=== PATIENT | male | born 1980 | race Two or more races ===

== ENCOUNTER 2021-01-06 16:10 | Inpatient (IN) | payer SELFPAY ==
[2021-01-06] VITALS (9 sets, daily range): BP systolic 81–122; BP diastolic 54–81
[~2021-01-06] VITALS: Ht 180.3 cm; Wt 72.1 kg
--- NOTE | 2021-01-06 16:20 | NUR ---
ESSENCE PENNINGTON"Was found in back of [address] with crack pipe beside him unresponsive. suspected OD on unknown substance. narcan given prior by paramedics priod to bringing patient. admit to ER bed 4
[2021-01-06] MEDS ORDERED: NALOXONE PREFILLED SYRINGE 2 MG/2 ML SYRINGE ONE (16:23)
[2021-01-06] MEDS ORDERED: NALOXONE PREFILLED SYRINGE 2 MG/2 ML SYRINGE IV ONE ×3 (16:30)
--- NOTE | 2021-01-06 16:30 | NUR ---
1630 administered 2mg nacarcan at this time per order.
--- NOTE | 2021-01-06 16:35 | NUR ---
NO POSITIVE RESPONSE POST NARCAN ADMINISTRATION, PT REMAINS OBTUNDED. ADMINISTERED 2ND DOSE PER ORDER
--- NOTE | 2021-01-06 16:40 | NUR ---
NO POSITIVE RESPONSE POST NARCAN ADMINISTRATION, PT REMAINS OBTUNDED. ADMINISTERED 3RD DOSE PER ORDER
--- NOTE | 2021-01-06 16:50 | NUR ---
PT REMAINED OBTUNDED, DR VARGAS MADE AWARE. PT PREP FOR RSI.
--- NOTE | 2021-01-06 16:51 | NUR ---
ETOMIDATE AND ROCURONIUM ADMINISTERED AT THIS TIME PER ORDER
--- NOTE | 2021-01-06 16:53 | NUR ---
INTUBATED WITH 7.5 EET TUBE SIZE, 24 CM AT LIP. WILL CONT TO MONITOR
[2021-01-06] MEDS ORDERED: NOREPINEPHRINE 8 MG in IV NS 0.9% 250ML IV PRN (17:00)
[2021-01-06] MEDS ORDERED: FENTANYL CITRATE/PF 1,250 MCG in IV NS 0.9% 225 ML IV PRN ×2 (17:00→22:30)
[2021-01-06] MEDS ORDERED: MIDAZOLAM HCL 50 MG in IV NS 0.9% 40 ML IV PRN ×2 (17:00→22:30)
[2021-01-06] MEDS ORDERED: KEY,NONCONTROL,TO KEEP IN PYXI 1 EA MC ONE (17:18)
[2021-01-06 17:21] LABS: BASOPHILS % (AUTO) 0.1 % (0.0-2.0); HEMATOCRIT 41 % (39-51); HEMOGLOBIN 12.9 g/dL (13.5-17.5); LYMPHOCYTES # (AUTO) 0.6 K/uL (0.8-4.8); MEAN CORPUSCULAR HGB CONC 32 g/dl (31.0-36.0); MEAN CORPUSCULAR VOLUME 99 fL (80-96); MONOCYTES # (AUTO) 1.6 K/uL (0.1-1.30); MONOCYTES % (AUTO) 10.3 % (2.0-12.0); NEUTROPHILS # (AUTO) 13.4 K/uL (1.8-8.9); NEUTROPHILS % (AUTO) 85.6 % (43.0-81.0); PLATELET COUNT (AUTO) 249 K/uL (150-450); WHITE BLOOD COUNT (AUTO) 15.6 K/uL (4.3-11.0)
[2021-01-06] MEDS ORDERED: NS 0.9% IV ONE (17:30)
[2021-01-06 17:33] LABS: ALANINE AMINOTRANSFERASE 121 U/L (12-78); ALBUMIN 3.9 g/dL (3.4-5.0); ALKALINE PHOSPHATASE 52 U/L (46-116); ASPARTATE AMINOTRANSFERASE 240 U/L (15-37); BILIRUBIN,DIRECT 0.1 mg/dL (0.0-0.2); BILIRUBIN,TOTAL 0.2 mg/dL (0.2-1.0); CALCIUM, SERUM 7.3 mg/dL (8.5-10.1); CARBON DIOXIDE 21 mmol/L (21-32); CHLORIDE 106 mmol/L (98-107); CREATININE 2.3 mg/dL (0.6-1.3); GLUCOSE 111 mg/dL (74-106); SODIUM SERUM 140 mmol/L (136-145); TOTAL PROTEIN, SERUM 6.9 g/dL (6.4-8.2); UREA NITROGEN, BLOOD 40 mg/dL (7-18)
[2021-01-06 17:40] LABS: POTASSIUM 6.4 mmol/L (3.5-5.1)
[2021-01-06 17:59] LABS: MAGNESIUM 2.4 mg/dL (1.8-2.4)
[2021-01-06 18:00] LABS: ALCOHOL, BLOOD < 2 mg/dL (0-0)
[2021-01-06] MEDS ORDERED: SODIUM POLYSTYRENE SULFONATE 15 G/60 ML BOTTLE NG ONE (18:00)
[2021-01-06] MEDS ORDERED: INSULIN REGULAR, HUMAN 100 UNIT/ML 10 ML VIAL IV ONE (18:00)
[2021-01-06] MEDS ORDERED: PIPERACILLIN /TAZOBACTAM 2.25 G in IV D5W 50 ML IV ONE (18:00)
[2021-01-06] MEDS ORDERED: DEXTROSE 50%-WATER 50 ML DISP.SYRIN IVP ONE (18:00)
--- NOTE | 2021-01-06 18:00 | NUR ---
DR VARGAS AT BEDSIDE FOR CENTRAL LINE INSERTION
[2021-01-06 18:03] LABS: ACETAMINOPHEN < 10 ug/ml (10-30)
[2021-01-06 19:02] LABS: CREATINE KINASE, TOTAL 1300 U/L (39-308)
[2021-01-06] MEDS ORDERED: ALBUTEROL FS 2.5 MG/3 ML VIAL.NEB ONE (19:26)
[2021-01-06] MEDS ORDERED: ASPIRIN 300 MG/SUPP.RECT RC ONE ×2 (19:30→20:23)
[2021-01-06] MEDS ORDERED: ALBUTEROL FS 2.5 MG/3 ML VIAL.NEB CONTNEB ONE (19:30)
--- NOTE | 2021-01-06 19:31 | NUR ---
room [id number]
--- NOTE | 2021-01-06 19:32 | NUR ---
increased versed to 1.5; and fentanyl 2
--- NOTE | 2021-01-06 19:47 | NUR ---
called rt for abg results. running right now
--- NOTE | 2021-01-06 19:52 | NUR ---
called xray for ng tube placement xray
--- NOTE | 2021-01-06 19:54 | NUR ---
NG-TUBE INSERTED AT THIS TIME IN LEFT NARE AT 60. X-RAY CALLED TO VERIFY PLACEMENT. WILL ENDORSE TO BAKERY SUPERVISOR
[2021-01-06] MEDS ORDERED: SODIUM POLYSTYRENE SULFONATE 15 G/60 ML BOTTLE ONE (19:55)
[2021-01-06] MEDS ORDERED: DEXTROSE 50%-WATER 50 ML DISP.SYRIN ONE (19:55)
[2021-01-06] MEDS ORDERED: INSULIN REGULAR, HUMAN 100 UNIT/ML 10 ML VIAL ONE (19:55)
--- NOTE | 2021-01-06 19:55 | NUR ---
GREGORY CATHETER 16 FR. INSERTED AT THIS TIME. DRAING TO GRAVITY CLEAR YELLOW URINE. ENDORSE TO LANDFILL ATTENDANT NURSE
[2021-01-06] MEDS ORDERED: VANCOMYCIN 1 GM in IV D5W 250 ML IV ONE (20:00)
[2021-01-06] MEDS ORDERED: VANCOMYCIN 1 GM VIAL ONE (20:23)
--- NOTE | 2021-01-06 20:30 | NUR ---
RT ABG RESULTS RELAYED TO DR. VARGAS, NO CHANGES AT THIS TIME. WILL CONTINUE TO MONITOR.
--- NOTE | 2021-01-06 20:51 | NUR ---
REPORT GIVEN TO ROGELIO PARRISH
[2021-01-06] MEDS ORDERED: ENOXAPARIN SODIUM 40 MG/0.4 ML DISP.SYRIN SQ SCH (21:00)
[2021-01-06 21:26] LABS: ABG BASE EXCESS -10.2 mmol/L; ABG OXYGEN SATURATION 97.2 % (92.0-98.5); ABG PCO2 41.6 mmHg (35.0-45.0); ABG PH 7.227 (7.350-7.450); ABG PO2 111.8 mmHg (75.0-100.0); AaDO2 559.6 mmHg; COHb 0.4 % (0.5-1.5); MetHb 0.2 % (0.0-1.5); O2Hb 96.6 % (94.0-97.0); SITE, ABG Left Radial
--- NOTE | 2021-01-06 21:30 | NUR ---
TRANSFERRED PER ACLS PROTOCOL
[2021-01-06] MEDS: NOREPINEPHRINE 32 MG in IV NS 0.9% 218 ML IV PRN (21:35)
--- NOTE | 2021-01-06 21:35 | NUR ---
ADMITTED A 40 Y/O MALE NON VERBAL FROM ER INTUBATED ON VENT ETT 7.5 SECURED AT 25CM AT THE LIP. ADMISSION ORDER NOTED AND CARRIED OUT HEAD TO TOE ASSESSMENT DONE SKIN INTACT . PTS ON RIGHT FEMORAL TLC , LEFT AC g18 ,AND RIGHT AC g20 ALL INTACT AND PATENT. PTS ON F/C DRAINING WITH YELLOWISH URINE OUTPUT . NGT CLAMPED ON LEFT NOSTRILS ELISA AT 60CM INTACT AND PATENT PTS ON NPO STATUS ,ALL.NEEDS ATTENDED TOO CALL LIGHT WITHIN REACH PTS ON VERSED 1.5 ML/HR FENTANYL 25MCG /5ML/HR LEVOPHED 0.6 /21.6 ML /HR ALL WELL TOLERATED BY PTS , ALL DUE MEDS GIVEN AD ORDERED , BELONGING FOR PTS IS ONLY PANTS AND UNDERWARE KEPT ON SIDE TABLE. WILL CONTINUE TO MONITOR.
[2021-01-06] MEDS: PANTOPRAZOLE 40 MG VIAL IV SCH (21:59)
[2021-01-06] MEDS ORDERED: AMIODARONE 450 MG in IV D5W 241 ML IV PRN (22:30)
[2021-01-06] MEDS ORDERED: AMIODARONE 150 MG in IV D5W 100 ML IV ONE (22:30)
[2021-01-06] MEDS: IV NS 0.9% 1,000 ML IV PRN (23:00)
[2021-01-06] MEDS ORDERED: SODIUM BICARBONATE SYR 50 MEQ/50 ML DISP.SYRIN IV ONE (23:30)
[2021-01-06] MEDS ORDERED: IV NS 0.9% 500 ML BAG IV ONE (23:30)
--- NOTE | 2021-01-06 23:47 | NUR ---
RECEIVED PT INTUBATED ON VENT FROM ER @2135. ETT 7.5 SECURED AT 25CM AT THE LIP. VENT ALARMS SET AND AUDIBLE. WILL CONTINUE TO MONITOR. Addendum: 01/06/21 at 2349 by ELIZABETH ROTHMAN RT Amended: Links added.
[2021-01-07] VITALS (87 sets, daily range): BP systolic 84–128; BP diastolic 34–88
[2021-01-07] MEDS ORDERED: PIPERACILLIN /TAZOBACTAM 3.375 G VIAL IV ONE ×2 (00:55→05:11)
[2021-01-07] MEDS: PIPERACILLIN /TAZOBACTAM 3.375 G in IV D5W 50 ML IV SCH ×5 (00:56→23:13)
[2021-01-07 03:15] LABS: BILIRUBIN,URINE NEGATIVE (NEGATIVE); COLOR,URINE YELLOW (YELLOW); LEUKOCYTE ESTERASE ,URINE NEGATIVE (NEGATIVE); NITRITE, URINE NEGATIVE (NEGATIVE); PROTEIN,URINE 30 mg/dl (NEGATIVE); UGLUCOSE 100 MG/DL mg/dL (NEGATIVE); UROBILINOGEN,URINE 0.2 EU/dL (0.2)
[2021-01-07 03:35] LABS: BACTERIA,URINE None seen /HPF (None Seen); SQUAMOUS EPITHELIAL CELL,UR Rare /HPF (None Seen); URINE AMORPHOUS PHOSPHATES Moderate /HPF (None Seen)
[2021-01-07 03:36] LABS: COARSE GRANULAR CASTS,URINE Rare /LPF (None Seen)
--- NOTE | 2021-01-07 05:00 | NUR ---
agricultural technician notes versed drip increase to 2mg multimedia technician finesse made aware
[2021-01-07 05:01] LABS: BASOPHILS % (AUTO) 0.2 % (0.0-2.0); HEMATOCRIT 43 % (39-51); HEMOGLOBIN 14.3 g/dL (13.5-17.5); LYMPHOCYTES # (AUTO) 1.2 K/uL (0.8-4.8); LYMPHOCYTES % (AUTO) 11.6 % (20.0-44.0); MEAN CORPUSCULAR HGB CONC 33 g/dl (31.0-36.0); MEAN CORPUSCULAR VOLUME 97 fL (80-96); MONOCYTES # (AUTO) 0.7 K/uL (0.1-1.30); MONOCYTES % (AUTO) 7.3 % (2.0-12.0); NEUTROPHILS # (AUTO) 8.2 K/uL (1.8-8.9); NEUTROPHILS % (AUTO) 80.9 % (43.0-81.0); PLATELET COUNT (AUTO) 264 K/uL (150-450); RED BLOOD CELL COUNT(AUTO) 4.44 MIL/uL (4.5-6.0); WHITE BLOOD COUNT (AUTO) 10.1 K/uL (4.3-11.0)
[2021-01-07 05:30] LABS: ALBUMIN 3.4 g/dL (3.4-5.0); BILIRUBIN,TOTAL 0.8 mg/dL (0.2-1.0); CALCIUM, SERUM 7.2 mg/dL (8.5-10.1); CREATININE 1.6 mg/dL (0.6-1.3); MAGNESIUM 2.1 mg/dL (1.8-2.4); PHOSPHORUS 3.3 mg/dL (2.5-4.9); POTASSIUM 4.2 mmol/L (3.5-5.1); TOTAL PROTEIN, SERUM 6.1 g/dL (6.4-8.2)
[2021-01-07] MEDS: IV NS 0.9% 1,000 ML IV PRN ×2 (06:30→15:46)
--- NOTE | 2021-01-07 06:37 | NUR ---
horticultural nursery assistant notes fentanyl drip stop pts very sedated finesse avery made aware. Addendum: 01/07/21 at 0639 by FRANCOIS HERR RN fentanyl drip stop at 0400 hrs
[2021-01-07] MEDS: ACETAMINOPHEN 650 MG/SUPP.RECT RC PRN ×2 (06:44→17:39)
--- NOTE | 2021-01-07 06:49 | NUR ---
agriculture inspector notes Pts temperature of 100 tylenol 650 mg suppository given as ordered.cooling measures administered. will indorse to rn day shift for continuity of care.
--- NOTE | 2021-01-07 07:15 | NUR ---
RETAIL SALES SPECIALIST OPENING NOTE RECEIVED REPORT FROM PM NURSE.PATIENT IN BED ,INTUBATED 7.5@LIP LEVEL,ADVANCED NGT PER X RAY RECOMMENDATION.ON VERSED ,LEVO FOR BP MAINTENANCE.IVF.HAS GREGORY CATH DRAINING CLEAR YELLOW URINE.FEMORAL PICC LINE IS INTACT AND PATENT.BILATERAL SOFT RESTRAINTS ON .SKIN WITH IN NORMAL LIMIT.BED IS LOW AND IN LOCKED POSITION.CALL LIGHT IN REACH.BED ALARM ON .SRX3.WILL CONTINUE TO MONITOR.
[2021-01-07] MEDS ORDERED: NOREPINEPHRINE 8 MG in IV NS 0.9% 242 ML IV PRN (08:00)
[2021-01-07] MEDS: PANTOPRAZOLE 40 MG VIAL IV SCH (08:14)
[2021-01-07] MEDS: HEPARIN SODIUM, PORCINE 5000 UNITS/1 ML VIAL SQ SCH ×2 (08:15→20:33)
[2021-01-07 10:46] LABS: ABG BASE EXCESS -2.7 mmol/L; ABG PH 7.326 (7.350-7.450); ABG PO2 107.8 mmHg (75.0-100.0); AaDO2 559.2 mmHg; COHb 0.3 % (0.5-1.5); MetHb 0.3 % (0.0-1.5); O2Hb 97.4 % (94.0-97.0); PEEP,BG 0 cm H2O; SITE, ABG Right Radial; VENT MODE, BG 18; VT, ABG 500 mL
--- NOTE | 2021-01-07 11:03 | NUR ---
changes made below per dr. mojica: et tube push in 3 cm from 25cm t0 28 cm lipline. PEEP FROM 0 TO +5 CM H2O RN NOTIFIED ON ABOVE CHANGES. Addendum: 01/07/21 at 1105 by YSABEL HWANG RT Amended: Links added.
[2021-01-07] MEDS: PROPOFOL 100 ML IV PRN ×2 (11:25→18:54)
[2021-01-07] MEDS ORDERED: MORPHINE SULFATE INJ 2 MG/ML DISP.SYRIN IV ONE (11:30)
[2021-01-07] MEDS ORDERED: MORPHINE SULFATE INJ 2 MG/ML DISP.SYRIN IV PRN (11:30)
[2021-01-07] MEDS: VANCOMYCIN 1 GM in IV D5W 250 ML IV SCH (13:16)
[2021-01-07] MEDS: NOREPINEPHRINE 32 MG in IV NS 0.9% 218 ML IV PRN (13:18)
--- NOTE | 2021-01-07 19:00 | NUR ---
RN NOTE REPORT RECEIVED FROM MINA MERCADO, PATIENT IN BED, SEDATED, IN NO S/SX OF ACUTE DISTRESS AT THIS TIME. SATURATION AT 100% ON ET TUBE CONNECTED TO MECHANICAL VENTILATOR WITH SETTINGS PRESCRIBED, SR ON THE MONITOR, HR IS 76. NOTED NG TUBE AT L NARE, POSITIVE PLACEMENT VERIFIED BY ASPIRATION AND AUSCULTATION, KEPT NPO. NOTED B SOFT WRIST RESTRAINTS, SKIN AND CIRCULATION WAS CHECKED. R FEMORAL TRIPLE LUMEN CATH INTACT, ALL HUBS PATENT AND FLUSHING WELL, NO S/S OF INFECTION NOTED, WITH LEVO INFUSING AT 0.6 MCG/KG/MIN, PROPOFOL AT 30 MCG/KG/MIN, AND NS AT 100 ML/HR. GREGORY CATHETER CONNECTED TO URINE BAG INTACT, DRAINING TO A CLEAR YELLOW OUTPUT. SAFETY MEASURES IMPLEMENTED. PATIENT BED ALARM IS ON. HEAD OF BED ELEVATED. BED IS LOCKED, IN LOWEST POSITION AND SIDE RAILS UP. CALL LIGHT WITHIN REACH OF THE PATIENT. WILL CONTINUE TO MONITOR AND REASSESS FOR ANY CHANGES.
--- NOTE | 2021-01-07 19:35 | NUR ---
NASCAR DRIVER NOTE PATIENT IN BED ,INTUBATED 7.12/02@LIP LEVEL,ADVANCED ET TUBE PER INSTRUCTIONS BY RT.ON PROPOFOL ,LEVO FOR BP MAINTENANCE.IVF.HAS GREGORY CATH DRAINING CLEAR YELLOW URINE.FEMORAL PICC LINE IS INTACT AND PATENT.BILATERAL SOFT RESTRAINTS ON .SKIN WITH IN NORMAL LIMIT.BED IS LOW AND IN LOCKED POSITION.CALL LIGHT IN REACH.BED ALRM ON .SRX3.ENDORSED TO PM NURSE FOR MILIND.RUBY MAHER MADE AWARE ABOUT NEW LABS IN THE MORNING AND MRSA POSITIVE RESULT,ON CONTACT ISOLATION .
--- NOTE | 2021-01-07 19:55 | NUR ---
RCVD PT ORALLY INTUBATED WITH 7.5 ETT SECURED @ 28 CM [facility] THE SETTINGS OF AC 18, VT 500, FIO2 100%. PEEP 5 . SUCTIONED SMALL AMOUNT OF WHITE THIN SECRETIONS. NO RESPIRATORY DISTRESS NOTED AT THIS TIME. VENT PLUGGED INTO RED OUTLET, VENT ALARMS ON AND AUDIBLE. WILL CONTINUE TO MONITOR PT T/O SHIFT.
[2021-01-07] MEDS: MUPIROCIN OINT 2% 22 GM TUBE NS SCH (20:34)
--- NOTE | 2021-01-07 21:50 | NUR ---
RN NOTE TELEPHONE CALL FROM LAB, STATED URINE COLLECTED FOR URINE CULTURE ON 01/06/21 FROM ER WAS NOT PROCESSED AND SPECIMEN NO LONGER VALID. NEW URINE SPECIMEN COLLECTED, LABELED AND PLACED IN [place], PICKED UP BY KENNY.
[2021-01-08] VITALS (97 sets, daily range): BP systolic 85–137; BP diastolic 51–89
[2021-01-08] MEDS: VANCOMYCIN 1 GM in IV D5W 250 ML IV SCH ×3 (00:49→23:59)
[2021-01-08] MEDS: PROPOFOL 100 ML IV PRN ×6 (01:26→23:11)
[2021-01-08] MEDS: NOREPINEPHRINE 32 MG in IV NS 0.9% 218 ML IV PRN (01:26)
[2021-01-08 05:01] LABS: BASOPHILS % (AUTO) 0.3 % (0.0-2.0); EOSINOPHILS % (AUTO) 0.6 % (0.0-6.0); HEMATOCRIT 38 % (39-51); HEMOGLOBIN 12.4 g/dL (13.5-17.5); LYMPHOCYTES # (AUTO) 1.2 K/uL (0.8-4.8); LYMPHOCYTES % (AUTO) 7.8 % (20.0-44.0); MEAN CORPUSCULAR HGB CONC 33 g/dl (31.0-36.0); MEAN CORPUSCULAR VOLUME 97 fL (80-96); MONOCYTES # (AUTO) 0.9 K/uL (0.1-1.30); MONOCYTES % (AUTO) 6.1 % (2.0-12.0); NEUTROPHILS # (AUTO) 13.2 K/uL (1.8-8.9); NEUTROPHILS % (AUTO) 85.2 % (43.0-81.0); PLATELET COUNT (AUTO) 206 K/uL (150-450); RED BLOOD CELL COUNT(AUTO) 3.91 MIL/uL (4.5-6.0); WHITE BLOOD COUNT (AUTO) 15.5 K/uL (4.3-11.0)
[2021-01-08] MEDS: IV NS 0.9% 1,000 ML IV PRN (05:18)
[2021-01-08] MEDS: PIPERACILLIN /TAZOBACTAM 3.375 G in IV D5W 50 ML IV SCH ×4 (05:19→23:00)
[2021-01-08 05:27] LABS: ALBUMIN 2.7 g/dL (3.4-5.0); BILIRUBIN,DIRECT 0.2 mg/dL (0.0-0.2); BILIRUBIN,TOTAL 0.6 mg/dL (0.2-1.0); CALCIUM, SERUM 7.6 mg/dL (8.5-10.1); CREATININE 0.8 mg/dL (0.6-1.3); MAGNESIUM 1.9 mg/dL (1.8-2.4); PHOSPHORUS 1.6 mg/dL (2.5-4.9); POTASSIUM 3.9 mmol/L (3.5-5.1); TOTAL PROTEIN, SERUM 5.7 g/dL (6.4-8.2)
--- NOTE | 2021-01-08 07:18 | NUR ---
RN NOTE PATIENT REMAINS SEDATED, R FEMORAL TLC INTACT WITH PROPOFOL INFUSING AT 35 MCG/KG/MIN, NS AT 100 ML/HR, AND LEVOPHED AT 0.2 MCG/KG/MIN, SATURATION AT 99% ON 70% FIO2 VIA ET TUBE CONNECTED TO MECHANICAL VENTILATOR, GREGORY CATHETER TO URINE BAG INTACT, DRAINED A TOTAL OF 495 CLEAR, YELLOW OUTPUT. ASPIRATION AND APPROPRIATE ISOLATION PRECAUTIONS MAINTAINED, SAFETY MEASURES IMPLEMENTED. PATIENT BED ALARM IS ON. HEAD OF BED ELEVATED. BED IS LOCKED, IN LOWEST POSITION AND SIDE RAILS UP. ENDORSED TO MONTEZ MERCADO FOR CONTINUATION OF CARE.
--- NOTE | 2021-01-08 07:30 | NUR ---
RN OPENING NOTES RECEIVED PATIENT SEDATED AND ORALLY INTUBATED. TOLERATING MECHVENT SETTINGS WITH AC 18 TV 500 FIO2 50% PEEP 5. NG LEFT NARE. SR 81 ON BEDSIDE MONITOR. RIGHT FEMORAL TLC WITH LEVO AT 0.2MCG/KG, PROPOFOL AT 35 MCG/KG, AND N/S AT 100ML/HR. GREGORY DRAINING BY GRAVITY. SAFETY CHECKS IN PLACE. WILL CONTINUE TO MONITOR.
[2021-01-08] MEDS ORDERED: ACETAMINOPHEN 650 MG/20.3 ML UDC NG PRN (08:00)
[2021-01-08] MEDS: PANTOPRAZOLE 40 MG VIAL IV SCH (08:10)
[2021-01-08] MEDS: HEPARIN SODIUM, PORCINE 5000 UNITS/1 ML VIAL SQ SCH ×2 (08:14→21:17)
[2021-01-08] MEDS: MUPIROCIN OINT 2% 22 GM TUBE NS SCH ×2 (08:16→21:17)
[2021-01-08 08:17] LABS: ABG BASE EXCESS 0.1 mmol/L; ABG OXYGEN SATURATION 98.9 % (92.0-98.5); ABG PCO2 44.2 mmHg (35.0-45.0); ABG PH 7.379 (7.350-7.450); ABG PO2 140.8 mmHg (75.0-100.0); COHb 0.1 % (0.5-1.5); MetHb 0.3 % (0.0-1.5); O2Hb 98.5 % (94.0-97.0); SITE, ABG Right Radial
--- NOTE | 2021-01-08 08:45 | NUR ---
RN NOTE [facility] 29.2. DR HIDALGO NOTIFIED.
[2021-01-08] MEDS: POTASSIUM PHOSPHATE MM 7.5 MMOL in IV NS 0.9% 100 ML IV SCH ×2 (10:00→14:01)
--- NOTE | 2021-01-08 10:15 | NUR ---
RN NOTE PATIENT WENT ON AFIB 120-140S. DR HIDALGO NOTIFIED. ORDER FOR CARDIZEM 10MG IV PUSH Q6H PRN WAS OBTAINED.
[2021-01-08] MEDS ORDERED: DILTIAZEM HCL 50 MG IV IV PRN (10:30)
[2021-01-08] MEDS: IV D5W 1,000 ML IV PRN (18:39)
--- NOTE | 2021-01-08 18:40 | NUR ---
RN CLOSING NOTES PATIENT REMAINS SEDATED AND ORALLY INTUBATED. MECHVENT SETTINGS AT AC 18 TV 500 FIO2 40% PEEP 5. NG LEFT NARE CLAMPED. SR 73 ON BEDSIDE MONITOR. RIGHT FEMORAL TLC WITH LEVO AT 0.2MCG/KG, PROPOFOL AT 40 MCG/KG, AND D5WAT 100ML/HR. GREGORY DRAINED 650MLS. SAFETY CHECKS IN PLACE. WILL ENDORSE TO NIGHT RN FOR CONTINUITY OF CARE.
--- NOTE | 2021-01-08 23:05 | NUR ---
BODY HANGER PT NOTED TO BE REACHING FOR ET TUBE AND DESATURATING. PROPOFOL INCREASED PER PROTOCOL TO ADEQUATE SEDATION LEVEL. FIO2 INCREASED TO 80% BY RT.
[2021-01-09] VITALS (87 sets, daily range): BP systolic 84–131; BP diastolic 43–92
[2021-01-09] MEDS: NOREPINEPHRINE 32 MG in IV NS 0.9% 218 ML IV PRN (01:19)
[2021-01-09] MEDS: PROPOFOL 100 ML IV PRN ×2 (02:20→05:31)
[2021-01-09 04:33] LABS: BASOPHILS # (AUTO) 0.1 K/uL (0.0-0.2); BASOPHILS % (AUTO) 0.5 % (0.0-2.0); EOSINOPHILS % (AUTO) 3.1 % (0.0-6.0); HEMATOCRIT 36 % (39-51); HEMOGLOBIN 11.9 g/dL (13.5-17.5); LYMPHOCYTES # (AUTO) 1.4 K/uL (0.8-4.8); MEAN CORPUSCULAR HGB CONC 33 g/dl (31.0-36.0); MEAN CORPUSCULAR VOLUME 96 fL (80-96); MONOCYTES # (AUTO) 0.7 K/uL (0.1-1.30); NEUTROPHILS # (AUTO) 11.6 K/uL (1.8-8.9); NEUTROPHILS % (AUTO) 81.4 % (43.0-81.0); PLATELET COUNT (AUTO) 192 K/uL (150-450); RED BLOOD CELL COUNT(AUTO) 3.76 MIL/uL (4.5-6.0); WHITE BLOOD COUNT (AUTO) 14.3 K/uL (4.3-11.0)
[2021-01-09 04:40] LABS: CALCIUM, SERUM 8.3 mg/dL (8.5-10.1); CREATININE 0.7 mg/dL (0.6-1.3); MAGNESIUM 1.9 mg/dL (1.8-2.4); PHOSPHORUS 1.8 mg/dL (2.5-4.9); POTASSIUM 3.7 mmol/L (3.5-5.1)
[2021-01-09] MEDS: IV D5W 1,000 ML IV PRN (05:30)
[2021-01-09] MEDS: PIPERACILLIN /TAZOBACTAM 3.375 G in IV D5W 50 ML IV SCH ×4 (05:30→23:31)
[2021-01-09] MEDS ORDERED: DC PROPOFOL WHEN EXTUBATED XX PRN (08:00)
--- NOTE | 2021-01-09 08:00 | NUR ---
RN NOTES RECEIVED PATIENT SEDATED AND EET/ MECHANICAL VENT SETTINGS WITH AC 18 TV 500 FIO2 40% PEEP 5.PATIENT TOLERATING SETTING WELL. NG LEFT NARE AND CLAMPED. PATIENT SEDATED INFUSING DIPRIVAN 60MCG/KG/HR , [id number] AT0.3 MCG/KR, AND D5W AT 100ML/HR,. SR 61 ON BEDSIDE MONITOR. TODAY PLAN IS WEANING FROM VENT ACCORDING [employer] OFFICER DR TOLENTINO. RGEGORY DRAINING BY GRAVITY. RECHECKED CIRCULATION FOR BILATERAL WRIST. SEEN HOSPITALIST IS GET FEEDING IF WEANING NOT GOING TO HAPPEN. ORDER TAKEN AND CARRIED OUT. SAFETY CHECKS IN PLACE. WILL CONTINUE TO MONITOR.
--- NOTE | 2021-01-09 08:20 | NUR ---
RN NOTES TITRATED DIPRIVAN PER PROTOCOL FOR SEDATION VACATION, AND WEANING FROM VENT PER Dr TOLENTINO'S ORDER. WILL MONITORING.
[2021-01-09] MEDS ORDERED: NOREPINEPHRINE 8 MG in IV NS 0.9% 242 ML IV PRN (09:00)
[2021-01-09] MEDS: PANTOPRAZOLE 40 MG VIAL IV SCH (09:09)
[2021-01-09] MEDS: HEPARIN SODIUM, PORCINE 5000 UNITS/1 ML VIAL SQ SCH ×2 (09:13→21:00)
[2021-01-09] MEDS: MUPIROCIN OINT 2% 22 GM TUBE NS SCH ×2 (09:17→20:59)
[2021-01-09 10:25] LABS: ABG BASE EXCESS 3.4 mmol/L; ABG OXYGEN SATURATION 98.7 % (92.0-98.5); ABG PCO2 35.9 mmHg (35.0-45.0); ABG PH 7.488 (7.350-7.450); ABG PO2 124.1 mmHg (75.0-100.0); AaDO2 119.8 mmHg; COHb 0.2 % (0.5-1.5); MetHb 0.3 % (0.0-1.5); O2Hb 98.2 % (94.0-97.0); SITE, ABG Right Brachial; VENT MODE, BG simv 4 500 ps 15 +5 40%
--- NOTE | 2021-01-09 10:28 | NUR ---
RN NOTES PATIENT GET EXTUBATED AT THIS TIME, ON ROOM AIR NOW, SUCTION, NO ACUTE RESPIRATORY DISTRESS. PATIENT TRYING TO REMOVE IV ACCESS, AND GREGORY. MONITORING CLOSELY.
[2021-01-09] MEDS: POTASSIUM PHOSPHATE MM 7.5 MMOL in IV NS 0.9% 100 ML IV SCH ×2 (10:33→12:49)
[2021-01-09] MEDS: IV D5/0.45 NACL 1,000 ML IV PRN ×2 (11:39→23:34)
[2021-01-09] MEDS: VANCOMYCIN 1 GM in IV D5W 250 ML IV SCH (12:45)
--- NOTE | 2021-01-09 13:07 | NUR ---
rn notes removed Deleon catheter via order of attacher Dr Snow .Patient uncooperative trying to remove iv access, and hearth monitor. keep restrain on rechecked circulation bilateral; upper extremities. patent alert and confused same time. swallow evaluation done, patient pass swallow evaluation, no coughing, able to swallow well. notified hospitalist and get order clear liquid diet. order taken and carried out.
--- NOTE | 2021-01-09 16:00 | NUR ---
RN NOTES PATIENT DELUSIONAL, KEEP TRYING TO REMOVE IV LINES, AND TAGS, UNABLE TO REMEMBER NAMES, AND EDGE. NOTIFIED HOSPITALIST AND GET ORDER PSYCH CONSULTATION. ORDER TAKEN AND CARRIED OUT.
--- NOTE | 2021-01-09 16:27 | NUR ---
RN NOTES PATIENT URINATED 360ML, USING URINAL.
--- NOTE | 2021-01-09 18:45 | NUR ---
RN NOTES PATIENT CONFUSED, DELUSIONAL, NEED CONSTANT REDIRECTION. NO ACUTE RESPIRATORY DISTRESS. RECHECKED CIRCULATION FOR RESTRAIN, PATIENT ABLE TO TURN AND REPOSTION SELF INDEPENDENTLY. EVEN IN THE RESTRAIN TRYING TO REMOVE IV ACCESS. INFUSING D51/2 NS AT 100 ML/HR , AND TKO 10ML ON TRIPLE LUMEN CATH ON RIGHT FEMORAL AREA. NEEDS ATTENDED AND ANTICIPATED. ENDORSED ONCOMING NURSE FOLLOW PLAN OF CARE.
--- NOTE | 2021-01-09 19:40 | NUR ---
RN NOTES RECEIVED PATIENT AWAKE ON BED, STATING THAT HIS NAME IS "ADY" AND HIS BIRTHDAY IS January. PT IS CONFUSED, UNABLE TO STATE HER FIRST AND LAST NAME ONLY STATING THAT HIS NAME IS "ADY" RESTLESS, NEEDS FURTHER INSTRUCTION BUT NON COMPLIANCE TRYING TO UNTIE HIMSELF. BREATHING EVEN AND UNLABORED. DENIES PAIN. VSS. INCONTINENT CARE PROVIDED. AFEBRILE. ON ROOM AIR. SR ON MONITOR. WITH IV SITE ON RIGHT FEMORAL PICC LINE RUNNING WITH D51/2 NS @ 100 ML/HR TOLERATED WELL. BILATERAL WRIST RESTRAINT KEPT IN PLACED. BED IN LOCKED AND SECURED AND INLOWEST POSSIBLE POSITION. KEPT PT CLEAN AND DRY. WILL CONTINUE TO MONITOR.
[2021-01-09] MEDS: VANCOMYCIN 1.25 GM in IV D5W 250 ML IV SCH (20:59)
[2021-01-09] MEDS ORDERED: VANCOMYCIN 1 GM in IV D5W 250 ML IV SCH (21:00)
[2021-01-09] MEDS: LORAZEPAM INJ 2 MG/ML VIAL IV PRN (23:53)
[2021-01-10] VITALS (18 sets, daily range): BP systolic 99–125; BP diastolic 57–75
[2021-01-10 04:18] LABS: BASOPHILS % (AUTO) 0.5 % (0.0-2.0); EOSINOPHILS % (AUTO) 2.9 % (0.0-6.0); HEMATOCRIT 34 % (39-51); HEMOGLOBIN 11.5 g/dL (13.5-17.5); LYMPHOCYTES # (AUTO) 1.3 K/uL (0.8-4.8); MEAN CORPUSCULAR HGB CONC 34 g/dl (31.0-36.0); MEAN CORPUSCULAR VOLUME 95 fL (80-96); MONOCYTES # (AUTO) 0.6 K/uL (0.1-1.30); MONOCYTES % (AUTO) 6.7 % (2.0-12.0); NEUTROPHILS # (AUTO) 6.7 K/uL (1.8-8.9); NEUTROPHILS % (AUTO) 74.9 % (43.0-81.0); PLATELET COUNT (AUTO) 171 K/uL (150-450); RED BLOOD CELL COUNT(AUTO) 3.54 MIL/uL (4.5-6.0)
[2021-01-10 04:46] LABS: CALCIUM, SERUM 8.1 mg/dL (8.5-10.1); CREATININE 0.6 mg/dL (0.6-1.3); MAGNESIUM 1.7 mg/dL (1.8-2.4); PHOSPHORUS 2.1 mg/dL (2.5-4.9); POTASSIUM 2.9 mmol/L (3.5-5.1)
[2021-01-10] MEDS: VANCOMYCIN 1.25 GM in IV D5W 250 ML IV SCH ×3 (05:23→21:04)
[2021-01-10] MEDS: PIPERACILLIN /TAZOBACTAM 3.375 G in IV D5W 50 ML IV SCH ×3 (05:48→17:08)
--- NOTE | 2021-01-10 06:48 | NUR ---
RN NOTES PATIENT ASLEEP AT THIS TIME. NO SIGNIFICANT CHANGES TOLERATED ROOM AIR SATURATION REMAINED >95%. SR ON MONITOR. AFEBRILE. VSS. INCONTINENT CARE RENDERED X 3 PATIENT HAS EPISODE OF NON COMPLIANT OF USING URINAL AT TIMES. RESTLESSNESS STILL NOTED. PRN MEDICINE EFFECTIVE. ALL DUE MEDICINE TOLERATED WELL VIA IV LINE. KEPT PT CLEAN AND COMFORTABLE IN BED. CLOSELY MONITOR. WILL ENDORSED CONTINUITY OF CARE TO AM NURSE.
--- NOTE | 2021-01-10 08:00 | NUR ---
RN NOTES RECEIVED PATIENT AWAKE, NEED REDIRECTION. NO ACUTE RESPIRATORY DISTRESS. RECHECKED CIRCULATION FOR RESTRAIN, PATIENT ABLE TO TURN AND REPOSTION SELF INDEPENDENTLY. INFUSING D51/2 NS AT 100 ML/HR , AND TKO 10ML ON TRIPLE LUMEN CATH ON RIGHT FEMORAL AREA. ASSIST BREAKFAST, NEEDS ATTENDED AND ANTICIPATED. WILL FOLLOW UP
[2021-01-10] MEDS: PANTOPRAZOLE 40 MG VIAL IV SCH (08:28)
[2021-01-10] MEDS: HEPARIN SODIUM, PORCINE 5000 UNITS/1 ML VIAL SQ SCH (08:29)
[2021-01-10] MEDS: MUPIROCIN OINT 2% 22 GM TUBE NS SCH ×2 (08:30→21:00)
[2021-01-10] MEDS ORDERED: POTASSIUM PHOSPHATE MM 7.5 MMOL in IV NS 0.9% 100 ML IV SCH (09:30)
[2021-01-10] MEDS ORDERED: Magnesium 1GM/D5W 100ML PREMIX 100 ML IV SCH (09:30)
[2021-01-10] MEDS: Magnesium 1GM/D5W 100ML PREMIX 100 ML IV SCH ×2 (09:39→10:44)
[2021-01-10] MEDS: NEUTRA PHOS 1 POWD.PACKET PO SCH ×2 (09:39→16:36)
[2021-01-10] MEDS: POTASSIUM CHLORIDE 20 MEQ TAB.PRT.SR PO SCH ×3 (09:39→10:45)
--- NOTE | 2021-01-10 11:00 | NUR ---
RN NOTES PATIENT TRANSFERRED TO THE TELE UNIT ROOM 116 BED 2. PATIENT HAS NO ACUTE RESPIRATORY DISTRESS. TELE MONITOR ON, VSS. REFUSED PAIN, ON ROOM AIR. INFUSING MG 100 ML/HR ON RIGHT FEMORAL CATH INTACT. PATIENT ON BILATERAL HAND RESTRAIN., BECAUSE OF TRYING TO REMOVE IV ACCESS. REPORT GIVEN MESHA CHARGE NURSE FOLLOW UP PLAN OF CARE..
--- NOTE | 2021-01-10 11:30 | NUR ---
RN NOTES RECEIVED PT FROM ICU IN ROOM 116-2, PT IS ALERT/ CONFUSED, DOES NOT FOLLOW COMMAND , MUMBLING AT TIMES , ON TELE SR HR IN 80'S , RIGHT FEMORAL TLC SITE , CLEAN DRY AND INTACT, PT TRYING TO GET OUT OF THE BED, LISA SOFT RESTRAINS ON FOR PT SAFETY, SR UP x3, CALL LIGHT WITHIN EASY REACH ,BED LOCKED AND IN LOWEST POSITION , CONTINUE TO MONITOR
[2021-01-10] MEDS: LORAZEPAM INJ 2 MG/ML VIAL IV PRN (13:00)
[2021-01-10] MEDS: SOD FERRIC GLUC 125 MG in IV NS 0.9% 100 ML IV SCH (14:41)
--- NOTE | 2021-01-10 18:00 | NUR ---
RN NOTES PT CONFUSED , TRIES TO GET OUT OF THE BED , LISA SOFT RESTRAINS ON FOR PT SAFETY, BED ALARM ON , VSS STABLE , NO SIGNIFICANT CHANGES NOTED ON THIS SHIFT , WILL ENDORSE TO BALANCE WHEEL HAND FILER NURSE FOR CONTINUITY OF CARE .
--- NOTE | 2021-01-10 19:30 | NUR ---
RN OPENING NOTE RECD PT FROM ROGELIO KING. PT REMAINS IN BED RESTING ON ROOM AIR. NO SOB NO RESP DISTRESS NOTED. PT INTRODUCED HIMSELF YADIEL, PT IS ALERT CONFUSED. HAD TO REORIENT PT TO ENVIRONMENT. PT IS ON TELE MONITORING PRESENTS WITH NSR WITH HR 92 AT THIS TIME. PT HAS RIGHT FEM TLC, FLUSHED ASEPTICALLY BLOOD RETURN PRESENT. PT HAS LISA SOFT WRIST RESTRAINTS IN PLACE. SKIN AND CIRCULATION CHECKED. ALL NEEDS ATTENDED. SAFETY MEASURES IN PLACE. HOB ELEVATED. SIDE RAILS UP X2, BED LOCKED IN LOWEST POSITION WITH BED ALARM ON. CALL LIGHT WITHIN REACH. WILL CONT TO MONITOR CLOSELY FOR CHANGE OF CONDITION.
--- NOTE | 2021-01-10 19:30 | NUR ---
RN OPENING NOTE RECD PT FROM ROGELIO KING. PT REMAINS IN BED RESTING ON ROOM AIR. NO SOB NO RESP DISTRESS NOTED. PT INTRODUCED HIMSELF PT IS ON TELE MONITORING PRESENTS WITH NSR WITH HR 92 AT THIS TIME. PT HAS RIGHT FEM TLC, FLUSHED ASEPTICALLY BLOOD RETURN PRESENT. PT HAS LISA SOFT WRIST RESTRAINTS IN PLACE. SKIN AND CIRCULATION CHECKED. ALL NEEDS ATTENDED. SAFETY MEASURES IN PLACE. HOB ELEVATED. SIDE RAILS UP X2, BED LOCKED IN LOWEST POSITION WITH BED ALARM ON. CALL LIGHT WITHIN REACH. WILL CONT TO MONITOR CLOSELY FOR CHANGE OF CONDITION. Addendum: 01/11/21 at 0130 by MASSIMO LOYD RN DISREGARD NOTE
--- NOTE | 2021-01-10 21:45 | NUR ---
RN NOTE PSYCH CONSULT- DR PADILLA AT BEDSIDE
[2021-01-11] VITALS: BP 126/65
--- NOTE | 2021-01-11 | NUR ---
RN NOTE RECEIVED PATIENT IN BED RESTING CONFUSED ON ROOM AIR O2:95% IINCONTIENT TO BOWEL AND BLADDER IV SITE IS ON RIGHT FEMORAL,INTACT PATENT CONTINUE TO MONITOR.
[2021-01-11] MEDS: PIPERACILLIN /TAZOBACTAM 3.375 G in IV D5W 50 ML IV SCH ×4 (00:02→18:01)
--- NOTE | 2021-01-11 00:30 | NUR ---
RN NOTE REPORT GIVEN TO ROGELIO VILLANUEVA FOR CONTINUATION OF CARE.
[2021-01-11 04:00] VITALS: BP 118/66
[2021-01-11] MEDS: VANCOMYCIN 1.25 GM in IV D5W 250 ML IV SCH ×3 (04:15→21:00)
--- NOTE | 2021-01-11 07:16 | NUR ---
RN NOTE PATIENT REMAINS ON ALERT CONFUSED NO SOB NOT ACUTE DISTRESS NOTED,ALL DUE MEDS GIVEN MD ORDERED ALL NEEDS MET ENDORSE NEXT COMING SHIFT FOR CONTINUATION OF CARE.
--- NOTE | 2021-01-11 07:25 | NUR ---
RN OPENING NOTES RECEIVED PT RESTING IN BED. CONFUSED. STABLE ON ROOM AIR. NO SOB OR ANY S/S OF RESPIRATORY DISTRESS NOTED. ON TELE MONITORING READING SR. RIGHT FEM TLC INTACT, PATENT AND FLUSHED. BILATERAL SOFT WRIST RESTRAINTS IN PLACE. SKIN AND CIRCULATION CHECKED. SAFETY MEASURES IN PLACE. CALL LIGHT WITHIN REACH. HOB ELEVATED. BED LOCKED AND IN LOWEST POSITION WITH SIDE RAILS UP X2. BED ALARM ON. WILL CONTINUE TO MONITOR.
[2021-01-11 08:00] VITALS: BP 121/71
[2021-01-11] MEDS: risperiDONE 1 MG TABLET PO SCH ×2 (08:35→16:42)
[2021-01-11] MEDS: MUPIROCIN OINT 2% 22 GM TUBE NS SCH ×2 (08:35→21:00)
[2021-01-11] MEDS: PANTOPRAZOLE 40 MG TABLET.DR PO SCH (08:35)
[2021-01-11] MEDS ORDERED: PANTOPRAZOLE 40 MG/PACK PACK PO SCH (09:00)
[2021-01-11] MEDS: LORAZEPAM INJ 2 MG/ML VIAL IV PRN (09:40)
[2021-01-11 12:00] VITALS: BP 118/75
--- NOTE | 2021-01-11 13:30 | NUR ---
Supply Assistant note: marketing services vice president consult requested for overdose. Patient is a 40-year-old, male. SW attempted to interview the patient at his bedside in the med-surg unit, accompanied by patient's RN Jeremy, but patient was unarousable. RN Jeremy stated that the patient was administered Risperdal earlier today due to agitation. Crisis team will not be called at this time as the patient is unable to cooperate with an evaluation. PLAN: SS will continue to follow up with staff toxicologist and will remain available as needed.
[2021-01-11] MEDS: SOD FERRIC GLUC 125 MG in IV NS 0.9% 100 ML IV SCH (14:21)
--- NOTE | 2021-01-11 15:17 | NUR ---
RT NOTE PT REFUSES ABG BLOOD DRAW. PT AWAKE AND ALERT. PT IS NON-COOPERATIVE. SITTER AT BED SIDE AND WITNESSED REFUSAL. ROGELIO JIMÉNEZ NOTIFIED. Addendum: 01/11/21 at 1519 by MARIA FERNANDA CASTANON RT Amended: Links added.
--- NOTE | 2021-01-11 19:00 | NUR ---
SURFACE GRINDER OPENING NOTES RECEIVED PT RESTING IN BED. ALERT AND CONFUSED. STABLE ON ROOM AIR. NO SOB OR ANY S/S OF RESPIRATORY DISTRESS NOTED. RIGHT FEM TLC INTACT, PATENT AND FLUSHED. BILATERAL SOFT WRIST RESTRAINTS IN PLACE. SKIN AND CIRCULATION CHECKED. SAFETY MEASURES IN PLACE. CALL LIGHT WITHIN REACH. HOB ELEVATED. BED LOCKED AND IN LOWEST POSITION WITH SIDE RAILS UP X2. BED ALARM ON. SITTER AT BEDSIDE. WILL CONTINUE TO MONITOR.
--- NOTE | 2021-01-11 19:09 | NUR ---
RN NOTES TRANSFERRED PT TO 3W ROOM 320-1 PER PROTOCOL IN STABEL CONDITION. REPORT GIVEN TO MARIANO MERCADO FOR MILIND.
--- NOTE | 2021-01-11 20:00 | NUR ---
PT REFUSED ASSESSMENT AND CARE. HE DOESN'T WANT TO BE TOUCHED. REFUSED MEDICATIONS AND LAB DRAWS. WANTS TO BE LEFT ALONE.
[2021-01-12] MEDS: VANCOMYCIN 1.25 GM in IV D5W 250 ML IV SCH (05:00)
[2021-01-12] MEDS: PIPERACILLIN /TAZOBACTAM 3.375 G in IV D5W 50 ML IV SCH ×2 (06:00)
--- NOTE | 2021-01-12 06:00 | NUR ---
RN CLOSING NOTES PT AWAKE IN BED AT THIS TIME. PT REMAINED STABLE THROUGHOUT SHIFT. NO SOB OR RESPIRATORY DISTRESS, ALL NEEDS, MEDICATIONS, AND CARE REFUSED BY PT. SITTER AT BEDSIDE, SAFETY PRECAUTIONS IN PLACE AND MAINTAINED AT ALL TIMES. BED IN LOWEST LOCKED POSITION, HOB ELEVATED, SIDE RAILS UP X 2. CALL LIGHT AND TABLE WITHIN REACH. WILL ENDORSE TO DAY SHIFT NURSE FOR MILIND
--- NOTE | 2021-01-12 07:55 | NUR ---
MS RN OPENING NOTE RECEIVED PATIENT AWAKE IN BED. ALERT. STABLE ON ROOM AIR - NO SOB OR DISTRESS/DISCOMFORT NOTED. IV ACCESS TO RIGHT FEMORAL TRIPLE LUMEN CATHETER - INTACT. REFUSED BLOOD DRAW THIS AM. PATIENT STATES HE WANTS SOMETHING FOR A FEVER, BUT SAYS HE IS ALLERGIC TO TYLENOL. ALSO STATES HE IS ALLERGIC TO FISH. PATIENT IS CALM AT THE MOMENT. SAFETY MEASURES IMPLEMENTED. CALL LIGHT WITHIN REACH. WILL CONTINUE TO MONITOR.
[2021-01-12] MEDS: MUPIROCIN OINT 2% 22 GM TUBE NS SCH (08:21)
[2021-01-12] MEDS: PANTOPRAZOLE 40 MG TABLET.DR PO SCH (08:22)
[2021-01-12] MEDS: risperiDONE 1 MG TABLET PO SCH (08:24)
--- NOTE | 2021-01-12 08:26 | NUR ---
MS RN NOTE OFFERED PATIENT AN ICE PACK SINCE UNABLE TO GIVE TYLENOL DUE TO ALLERGY. PATIENT DECLINED. I ASKED FOR PATIENT'S NAME - HE STATED "CAN YOU BE COHERENT AND LEAVE ME ALONE". I OFFERED PATIENT SCHEDULED MEDICATION AND EDUCATED HIM ON THE IMPORTANCE OF TAKING IT TO GET BETTER. HE STATED FOR ME TO LEAVE HIM ALONE OR HE WOULD "BEAT THE CRAP OUT OF ME".
--- NOTE | 2021-01-12 09:00 | NUR ---
MS RN NOTE PATIENT PULLED OUT FEMORAL CATH. SITTER ATTEMPTED MULTIPLE TIMES TO STOP HIM BUT HE WAS VERY COMBATIVE, THREATENING, AND YELLING. PATIENT STATED HE DOESN'T WANT ANY MEDICATION OR ANY THING IN HIS BODY. STATED HE WANTED TO LEAVE AND BE LEFT ALONE. AWARE. ASSISTANT ATHLETIC TRAINER CONTACTED TO GIVE PATIENT RESOURCES FOR AMA.
[2021-01-12] MEDS ORDERED: POTASSIUM CHLORIDE 20 MEQ TAB.PRT.SR PO ONE (11:00)
--- NOTE | 2021-01-12 11:40 | NUR ---
"SS Consult: SS Consult for homelessness & substance use. The pt. is a 40-year-old male BIBRA after pt. was found unresponsive on the street. SW met with pt. bedside and pt. is awake and alert and compliant with interview. Pt. states his name is Capo and cannot provide further details. Pt. states he does not know why he is in the hospital. Pt. has speech is quiet, mood and thought process are WNL. Pt. denies SI/HI and denies hallucinations. Pt. states he is currently experiencing homelessness and was last residing at [facility] [[address]. [place], [place] [address] ]. Per pt. he would like to return there if possible. Pt. states he is also open to halfway placement. Pt. states he drinks 1 L Vodka Daily and also does Meth Daily. Pt. states he receives SSI. SW provided pt. with addiction resources and pt. is receptive. FELIPE attempted to call [facility] [ ] for placement. However, no answer. SW provide Homeless resources and location/phone number for [facility]. FELIPE provided halfway [facility] at : [facility] [facility] [address]; [phone]] and FELIPE printed bus route and nurseSamantha provided bus pass to pt. for transportation and pt. is agreeable. FELIPE notified pt.s nurse, Constance. Pt. signed homeless waiver and the following homeless resources were provided to pt. and he accepted them: Substance Abuse resources provided included: [facility] Substance Abuse Self-Helpline (SAS) ; CRI -[facility]LP [address] [facility]. [place]. [place] [address] ; [facility] [address] [facility] [address] ; [facility] Rehabilitation Program [address] [facility]. [facility] [address] ; [facility] [address] [facility] [address] ; [facility] [address] [facility] [address] ; [facility] [address] [facility] [phone] ; [facility] Substance Abuse Helpline(SAS)-[facility] ; [facility] ; [facility] [place]; [facility] [place]; [facility] [place]; [facility] Giovanny Kim; [facility]; [facility]; [facility]; [facility], [facility]. [facility]; Alcoholics Anonymous -SFV; Pi-Xsop-Yegsszo ; Marijuana Anonymous -SFV; Narcotics Anonymous www.na.org; Year-round shelters: [place] [facility] [address] [place], [place] [id number] ; [place] [facility] [address] [place] [address]; [facility] [id number] [facility] [address] Winter Shelters: Abdirashid Mott Provider: Lita [facility] [place] Address: [address] [place], [address] # of Beds: 47 Population Served: [facility] 6 | [facility] Colleen Werner [place] Provider: Home at Last Address: [address], [address] # of Beds: 66 Population Served: [employer] [place] Provider: First to Serve Address: [address] [facility], [address] # of Beds: 56 Population Served: Nemesio Mott Provider: SSG/ [facility] Address: [address] [facility], [address] # of Beds: 49 Population Served: [facility] SPA 8 | [place] Jacquelyn Mott Provider: First to Serve Address: [address], [address] # of Beds: 37 Population Served: [facility] Hygiene: [facility]: [address] [place] ; [place] [facility] [address] [facility] ; [facility] [address] [facility], [place] Nu . Food Resources: [place] [facility]- [address] [facility] Meet Each Need with Dignity ([facility]) [address] [facility]; [facility] Food [facility] [address] [facility]; [facility] [address] [facility]. Mental Health resources provided: [facility] [address] [place], [place] [id number] ; [facility] Mental Health [employer] [address] [facility] [address], [place], [place] [id number] ; [facility] [address] [place], [place] [id number] ; [facility] [place], [place] [id number] Healthcare Clinics: [facility] [address] [facility], [address] [place]. [place] ; [facility] [address] [place] [address]; [facility] [address] [facility]. [place] [address] [phone] Counseling--Outpatient [facility] [address] [facility] [address] [facility], [place] [address] (Specializes in in-depth psychotherapy for emotional distress: anxiety, depression, interpersonal conflicts, life transitions, childhood abuse) [facility] [address] [place], [place] [address] (Assist with solving problem marital difficulties, separation & divorce, aging parents, & grief, chronic & terminal illness) [facility] [address] [place] [address] (Deal with loss & grief, anxiety, marital difficulties) Homebound/Mental Health Services [address] [place], [place] [address] (Provide in-home mental services to people who are incapable of leaving their homes) [facility] Elder[facility] Senior Service/Resource Center [address] [place] [address] [facility] [address] [place], [place] [id number] PSYCHIATRIC OUTPATIENT SERVICES [facility] Partial Hospitalization and Intensive Outpatient Program (Managed Care and [place] Only)[address] [facility] [phone] [facility] Partial Hospitalization and Outpatient [id number] [place], [place] [phone] [facility] Partial Hospitalization and Outpatient [id number] [facility]. [place], [place] [phone] On license of [facility] [id number] [place], [place] [phone] [facility] Partial Hospitalization and Outpatient [id number] Emelita [facility] Giovanny Kim, [phone] "
--- NOTE | 2021-01-12 11:58 | NUR ---
AMA DISCHARGE NOTE PATIENT DISCHARGED AMA. PATIENT WAS REFUSING ALL MEDICATION THIS MORNING - WISHED TO BE LEFT ALONE AND NOT TOUCHED. PATIENT PULLED OUT FEMORAL CATHETER - SAYS HE DOES NOT WANT ANYTHING IN HIS BODY. REFUSING ALL TREATMENT/INTERVENTIONS - STATING HE WOULD LIKE TO LEAVE OR HE WOULD "KILL/BEAT THE CRAP OUT OF EVERYONE". PATIENT IS ALERT, AMBULATORY. REFUSED TO SIGN AMA FORM. REFUSED TO ACCEPT ANY EXITCARE/DISCHARGE PAPERWORK. 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 NO IV LINES PRESENT. WRISTBAND REMOVED. PATIENT WAS GIVEN CLOTHES, BUS PASS, AND DIRECTIONS TO GET TO HALF-WAY. ESCORTED TO LOBBY IN WHEELCHAIR BY BLAYNE BRADSHAW.
[2021-01-12] MEDS ORDERED: Sodium Phosphate 30 MMOL in IV NS 0.9% 250 ML IV SCH (12:00)
[2021-01-12] MEDS ORDERED: Magnesium 1GM/D5W 100ML PREMIX 100 ML IV SCH (12:00)
== END 2021-01-12 12:00 | disposition left against medical advice (07) | DRG 917 ==
LOC: EDBD 16:15 → ER 16:15 → ICU 19:33 → TELE1 01-10 11:09 → MEDSG1 01-11 08:23 → MED 01-11 18:48
PROVIDERS: ADMIT Nurse Practitioner Acute Care; ATTEND Internal Medicine
PROC: 5A1945Z Respiratory Ventilation, 24-96 Consecutive Hours (ICD-10-PCS; principal; 2021-01-06)
PROC: 0BH18EZ Insertion of Endotracheal Airway into Trachea, Via Natural or Artificial Opening Endoscopic (ICD-10-PCS; 2021-01-06)
DX: T50.901A Poisoning by unspecified drugs, medicaments and biological substances, accidental (unintentional), initial encounter (principal); A41.9 Sepsis, unspecified organism; G92 Toxic encephalopathy; I21.4 Non-ST elevation (NSTEMI) myocardial infarction; J96.01 Acute respiratory failure with hypoxia; N17.0 Acute kidney failure with tubular necrosis; R65.21 Severe sepsis with septic shock; J69.0 Pneumonitis due to inhalation of food and vomit; E87.0 Hyperosmolality and hypernatremia; E87.2 Acidosis; E83.51 Hypocalcemia; Y92.89 Other specified places as the place of occurrence of the external cause; Z20.822 Contact with and (suspected) exposure to COVID-19; Z59.0 Homelessness; R74.01 Elevation of levels of liver transaminase levels; F19.10 Other psychoactive substance abuse, uncomplicated; E87.5 Hyperkalemia; E87.6 Hypokalemia; F29 Unspecified psychosis not due to a substance or known physiological condition
CPT/HCPCS: 31720; 36415; 36600; 70450-TC; 71045-TC; 72125-TC; 76770-TC; 80048-TC; 80053-TC; 80076-TC; 80202-TC; 81001; 82140-TC; 82550-TC; 82553; 82728-TC; 82803-TC; 82962-TC; 83540-TC; 83605-TC; 83735-TC; 84100-TC; 84478-TC; 84484-TC; 85025-TC; 85730-TC; 87040-TC; 87081-TC; 87086-TC; 93307-TC; 94003-TC; 94760-TC; 94799-TC; C1751; C9113; G0378; G0480; J1644; J1650; J1815; J2060; J2250; J2270; J2310; J2543; J2916; J3010; J3370; J3475; J3490; J7030; J7040; J7050; J7060; J7070; U0003